=== PATIENT | female | born 2005 | race Caucasian/White ===

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

== ENCOUNTER → 2025-07-10 | Outpatient (CLI) | payer OTHER ==
[~2025-07-10] MED LIST: ACET80L PO; AZIT200SU PO; DIAZ5 PO; TRILEPTAL PO; [UNRECOGNIZED DRUG - REMARK] RC
[2025-07-10 20:26] LABS: Bacterial Vaginosis PCR Negative (NEGATIVE); Candida glabrata-krusei, PCR NOT DETECTED (NOT DETECT)
[2025-07-10 20:33] LABS: Candida Group, PCR DETECTED (NOT DETECT)
== END | disposition home or self-care (01) ==
LOC: LAB 19:13 → LAB SHORT 19:13
PROVIDERS: Student in an Organized Health Care Education/Training Program
DX: N89.8 Other specified noninflammatory disorders of vagina (principal); R30.0 Dysuria
CPT/HCPCS: 81515

== ENCOUNTER → 2025-07-11 | Outpatient (CLI) | payer OTHER | LOC: LAB 09:32 → LAB SHORT 09:32 | DX: R30.0 Dysuria (principal) | CPT/HCPCS: 87086 ==